=== PATIENT | female | born 1995 | race Caucasian/White ===

== ENCOUNTER 2024-05-30 09:10 | Emergency (ER) | payer OTHER ==
[~2024-05-30] VITALS: Ht 165.1 cm; Wt 70.0 kg
[2024-05-30 09:15] VITALS: O2SAT 98
[2024-05-30] MEDS ORDERED: MECLIZINE 25MG TABLET PO ONE (10:00)
[2024-05-30] MEDS ORDERED: ISOP30DR11 EACH EAR (12:51)
[2024-05-30] MEDS ORDERED: MECL-299 MT (12:51)
[2024-05-30] MEDS: MECLIZINE 25MG TABLET PO NR (13:36)
[2024-05-30] MEDS: CARBAMIDE PEROXIDE 6.5% OTIC SOLN 15ML EACH EAR ONE (13:37)
[2024-05-30 13:38] VITALS: BP 117/60; PULSE 80; RESP 16; TEMP 36.78072; O2SAT 98
== END 2024-05-30 13:39 | disposition home or self-care (01) ==
LOC: ER 09:10
DX: R42 Dizziness and giddiness (principal); R11.2 Nausea with vomiting, unspecified
CPT/HCPCS: 99283; J8597